=== PATIENT | female | born 1975 | race Caucasian/White ===

== ENCOUNTER 2019-05-14 17:40 | Outpatient (CLI) | payer BC | END 2019-05-14 17:41 | disposition home or self-care (01) | LOC: COV 17:40 | PROVIDERS: ATTEND Family Medicine | DX: R05 Cough (principal); R50.9 Fever, unspecified | CPT/HCPCS: 81599 ==

== ENCOUNTER 2021-05-19 19:10 | Outpatient (CLI) | payer BC, OTHER ==
[2021-05-19 20:06] LABS: BASOPHILS # (AUTO) 0.1 10^3/uL (0.0-0.1); EOSINOPHILS # (AUTO) 0.1 10^3/uL (0.0-0.7); EOSINOPHILS % (AUTO) 1.5 %; HCT - HEMATOCRIT 35.2 % (37.0-47.0); HGB - HEMOGLOBIN 10.5 g/dL (12.0-16.0); LYMPHOCYTES # (AUTO) 2.7 10^3/uL (1.5-3.5); LYMPHOCYTES % (AUTO) 33.5 %; MEAN CORPUSCULAR HEMOGLOBIN 22.6 pg (27.0-31.0); MEAN CORPUSCULAR HGB CONC 29.8 g/dL (32.0-36.0); MEAN CORPUSCULAR VOLUME 75.9 fL (81.0-99.0); MEAN PLATELET VOLUME 9.6 fL (7.9-10.8); MONOCYTES # (AUTO) 0.7 10^3/uL (0.0-1.0); MONOCYTES % (AUTO) 7.9 %; NEUTROPHILS # (AUTO) 4.6 10^3/uL (1.5-6.6); NEUTROPHILS % (AUTO) 55.7 %; PLT - PLATELET COUNT 291 10^3/uL (130-450); RED BLOOD COUNT 4.64 10^6/uL (4.20-5.40); RED CELL DISTRIBUTION WIDTH 17.4 % (12.0-15.0); WHITE BLOOD COUNT 8.2 x10^3/uL (4.8-10.8)
[2021-05-19 20:18] LABS: ALBUMIN 4.3 g/dL (3.2-5.5); ALBUMIN/GLOBULIN RATIO 1.2 (1.0-2.2); ALKALINE PHOSPHATASE 42 IU/L (42-121); ALT ALANINE AMINOTRANSFERASE < 10 IU/L (10-60); AST ASPARTATE AMINOTRANSFERASE 14 IU/L (10-42); BILIRUBIN,TOTAL 0.7 mg/dL (0.2-1.0); BUN - BLOOD UREA NITROGEN 20 mg/dL (6-20); CARBON DIOXIDE - CO2 25 mmol/L (21-32); CHLORIDE 102 mmol/L (101-111); CREATININE 0.9 mg/dL (0.4-1.0); GFR - MDRD 67 (>89); GLUCOSE 96 mg/dL (70-100); SODIUM 135 mmol/L (135-145); TOTAL PROTEIN 7.8 g/dL (6.7-8.2)
[2021-05-19 20:35] LABS: THYROID STIMULATING HORMONE 12.21 uIU/mL (0.34-5.60)
[2021-05-19 21:13] LABS: FREE T4 (FREE THYROXINE) 0.69 ng/dL (0.58-1.64)
--- NOTE | 2021-05-20 11:48 | Ultrasound Report ---
P PROCEDURE: Head or Neck Soft Tissue INDICATIONS: GOITER TECHNIQUE: Real-time scanning was performed of the thyroid gland, with image documentation. COMPARISON: None FINDINGS: Right: Thyroid lobe measures 6.2 x 2.8 x 2.2 cm, and is extensively heterogeneous and nodular in ech otexture. Left: Thyroid lobe measures 6.1 x 2.7 x 2.0 cm, and is extensively heterogeneous and nodular in echo texture. Deep to the left lobe, there is an exophytic thyroid tissue containing a small hypoechoic no dule measuring about 6 mm. Isthmus: 7 mm thick. 2 nodules arise directly inferior to the isthmus. Nodule number: One Location: Right inferior isthmus Size: 1.3 x 1.7 x 1.7 cm. Composition: Predominantly cystic Echogenicity: Centrally anechoic Shape: wider than tall. Margins: Smooth Echogenic foci: Peripheral calcification Total points: 3 ACR TI-RADS category: Mildly suspicious Nodule number: Two Location: Right isthmus Size: 1.1 x 0.8 x 0.9 cm. Composition: Solid Echogenicity: Hypoechoic Shape: wider than tall. Margins: Indistinct Echogenic foci: No Total points: 6 ACR TI-RADS category: Moderately suspicious Nodule number: Three Location: Inferior left thyroid Size: 1.6 x 1.3 x 1.6 cm. Composition: Solid Echogenicity: Centrally isoechoic, peripherally hypoechoic Shape: wider than tall. Margins: Smooth Echogenic foci: No Total points: 4 ACR TI-RADS category: Moderately suspicious Nodule number: Four Location: Left inferior thyroid Size: 1.1 x 1.0 x 0.9 cm. Composition: Solid Echogenicity: Hypoechoic Shape: wider than tall. Margins: Smooth Echogenic foci: No Total points: 4 ACR TI-RADS category: Moderately suspicious IMPRESSION: 1. Multinodular, enlarged thyroid gland compatible with goiter. 2. Bilateral thyroid nodules, some are moderately suspicious. FNA of the largest left inferior pole n odule is recommended to establish benignity (nodule #3). 3. Possible right parathyroid adenoma measuring 9 mm. Correlate with labs to determine any clinical s ignificance. ACR TI-RADS definitions and recommendations: TI-RADS 1 (benign): 0 points. FNA not needed. TI-RADS 2 (not suspicious): 2 points. FNA not needed. TI-RADS 3 (mildly suspicious): 3 points. "FNA if 2.5 cm or larger, follow up if 1.5 cm or larger (at 1, 3, and 5 years). TI-RADS 4 (moderately suspicious): 4-6 points. "FNA if 1.5 cm or larger, follow up if 1 cm or larger (at 1, 2, 3, and 5 years). TI-RADS 5 (highly suspicious): 7 points or more. "FNA if 1 cm or larger, follow up if 0.5 cm or larger (every year for 5 years). Reviewed by: Janel Santos MD on 05/20/2021 11:47 AM PDT Approved by: Janel Santos MD on 05/20/2021 11:47 AM PDT Station ID: [id number]
== END 2021-05-19 19:11 | disposition home or self-care (01) ==
LOC: DI 19:10
PROVIDERS: ATTEND Nurse Practitioner Family
DX: E04.2 Nontoxic multinodular goiter (principal); R53.83 Other fatigue
CPT/HCPCS: 36415; 80053; 84439; 84443; 85025

== ENCOUNTER 2021-05-25 18:19 | Outpatient (CLI) | payer OTHER ==
[2021-05-25 21:55] LABS: % IRON SATURATION 4 % (20-50); IRON 17 ug/dL (28-170); TOTAL IRON BINDING CAPACITY 468 ug/dL (250-450); TRANSFERRIN 334 mg/dL (192-382)
== END 2021-05-25 18:20 | disposition home or self-care (01) ==
LOC: LAB.S 18:19
PROVIDERS: ATTEND Nurse Practitioner Family
DX: E03.9 Hypothyroidism, unspecified (principal); D50.9 Iron deficiency anemia, unspecified
CPT/HCPCS: 36415; 82728; 83540; 84466; 86376

== ENCOUNTER 2021-07-06 11:10 | Outpatient (CLI) | payer OTHER ==
[~2021-07-06 11:10] MED LIST: LIDOCAINE-MPF 1% 10 ML AMP ONE
== END 2021-07-06 11:11 | disposition home or self-care (01) ==
LOC: DI 11:10
PROVIDERS: ATTEND Nurse Practitioner Family
DX: Z53.9 Procedure and treatment not carried out, unspecified reason (principal)

== ENCOUNTER 2022-02-10 11:33 | Outpatient (CLI) | payer OTHER ==
[2022-02-10 14:57] LABS: HCT - HEMATOCRIT 39.3 % (37.0-47.0); HGB - HEMOGLOBIN 12.1 g/dL (12.0-16.0); MEAN CORPUSCULAR HEMOGLOBIN 25.2 pg (27.0-31.0); MEAN CORPUSCULAR HGB CONC 30.8 g/dL (32.0-36.0); MEAN CORPUSCULAR VOLUME 81.9 fL (81.0-99.0); MEAN PLATELET VOLUME 11.1 fL (7.9-10.8); RED BLOOD COUNT 4.8 10^6/uL (4.20-5.40); RED CELL DISTRIBUTION WIDTH 14.9 % (12.0-15.0); WHITE BLOOD COUNT 6.5 x10^3/uL (4.8-10.8)
[2022-02-10 15:49] LABS: THYROID STIMULATING HORMONE 2.02 uIU/mL (0.34-5.60)
[2022-02-10 15:51] LABS: FREE T3 2.96 pg/mL (2.5-3.9); FREE T4 (FREE THYROXINE) 1.06 ng/dL (0.58-1.64)
== END 2022-02-10 11:34 | disposition home or self-care (01) ==
LOC: LAB.S 11:33
PROVIDERS: ATTEND Advanced Practice Midwife
DX: Z01.419 Encounter for gynecological examination (general) (routine) without abnormal findings (principal); E03.9 Hypothyroidism, unspecified
CPT/HCPCS: 36415; 84439; 84443; 84481; 85027